=== PATIENT | male | born 1990 | race African-American/Black ===

== ENCOUNTER 2024-01-09 20:38 | Emergency (ER) | payer OTHER ==
[2024-01-09 20:46] VITALS: BP 168/97; PULSE 78; RESP 20; TEMP 99.2; BMI 23.7
== END 2024-01-09 22:27 | disposition left against medical advice (07) ==
LOC: JER 20:38 → JERFT 20:38
DX: M25.512 Pain in left shoulder (principal); V43.32XA Unspecified car occupant injured in collision with other type car in nontraffic accident, initial encounter
CPT/HCPCS: 99283-25